=== PATIENT | male | born 1985 | race African-American/Black ===

== ENCOUNTER 2017-01-04 13:46 | Inpatient (IN) ==
[2017-01-04] MEDS ORDERED: ASPIRIN PO STA (14:28)
--- NOTE | 2017-01-04 14:43 | Diag Imaging Result Doc PS360 ---
CHEST-2 VIEWS - 01/04/2017 INDICATION: shortness of breath TECHNIQUE: COMPARISON: None FINDINGS: There are some peribronchial streaking in the lung bases particularly the right lower lobe. Heart size is borderline. Pulmonary vascularity is normal. No pneumothorax or pleural effusion. IMPRESSION: Bronchitis in the right lung base. Electronically signed by Eric Jacome 01/04/2017 2:40 PM
[2017-01-04 14:44] LABS: MANUAL DIFF NEEDED? NO
[2017-01-04 14:46] LABS: BASO% 0.5 % (0.0-0.8); EOS# 0.48 X1000 (0.0-0.7); EOS% 5.1 % (0.0-10.0); HEMATOCRIT 44.7 % (42.0-52.0); HEMOGLOBIN 15.1 g/dL (14.0-18.0); IMM GRAN# 0.02 X1000 (0.0-0.04); IMM GRAN% 0.2 % (0.0-0.5); LYMPH# 1.92 X1000 (1.2-3.4); LYMPH% 20.3 % (20.5-51.1); MCH 31.1 PG (27-31); MCHC 33.8 g/dL (33-37); MCV 92.2 FL (81-99); MONO# 1.27 X1000 (0.11-0.59); MONO% 13.4 % (1.7-9.3); MPV 10.9 FL (7.4-10.4); NEUT% 60.5 % (42.2-75.2); PLT 192 X1000 (130-400); RBC 4.85 XMIL (4.7-6.1)
[2017-01-04 15:00] LABS: ALBUMIN 3.6 g/dL (3.5-5.0); CALCIUM 8.6 mg/dL (8.8-10.2); INR 0.88 (0.86-1.15); MAGNESIUM 1.8 mg/dL (1.5-2.7); POTASSIUM 3.8 mmol/L (3.5-5.1); PROTIME 12.7 Seconds (12.1-15.5); TOTAL BILIRUBIN 0.2 mg/dL (0.20-1.00); TOTAL PROTEIN 6.5 g/dL (6.3-8.3)
[2017-01-04 15:01] LABS: PTT PL 28.6 Seconds (22.6-43.9)
[2017-01-04] MEDS ORDERED: LABETALOL IV ONE (15:01)
--- NOTE | 2017-01-04 15:15 | EKG Report ---
Test Performed on : 01/04/2017 2:37:38 PM Test Reason : CHESTPAIN Blood Pressure : / mmHG Vent. Rate : 098 BPM Atrial Rate : 098 BPM P-R Int : 178 ms QRS Dur : 090 ms QT Int : 404 ms P-R-T Axes : 067 -12 177 degrees QTc Int : 515 ms Normal sinus rhythm. Biatrial enlargement Anteroseptal infarct (cited on or before 04-JAN-2017) Marked T wave abnormality, consider inferolateral ischemia Prolonged QT ACUTE UT / STEMI Abnormal ECG When compared with ECG of 04-JAN-2017 14:36, (Unconfirmed) No significant change was found Unconfirmed Result
[2017-01-04 15:30] LABS: UR AMPHETAMINES QUAL NONE DETECTED (NONE DETECT); UR BARBITUATES QUAL NONE DETECTED (NONE DETECT); UR BENZODIAZEPIN QUAL NONE DETECTED (NONE DETECT); UR CANNABINOIDS QUAL NONE DETECTED (NONE DETECT); UR COCAINE QUAL NONE DETECTED (NONE DETECT); UR MDMA QUAL NONE DETECTED (NONE DETECT); UR METHADONE QUAL NONE DETECTED (NONE DETECT); UR METHAMPHETAMINE QUAL NONE DETECTED (NONE DETECT); UR OPIATES QUAL NONE DETECTED (NONE DETECT); UR OXYCODONE QUAL NONE DETECTED (NONE DETECT); UR PCP QUAL NONE DETECTED (NONE DETECT); UR TCA QUAL NONE DETECTED (NONE DETECT)
[2017-01-04] MEDS ORDERED: APRESOLINE IV ONE (15:47)
[2017-01-04] MEDS ORDERED: APRESOLINE ONE (15:49)
--- NOTE | 2017-01-04 16:16 | EKG Report ---
Test Performed on : 01/04/2017 3:57:12 PM Test Reason : REPEAT Blood Pressure : / mmHG Vent. Rate : 090 BPM Atrial Rate : 090 BPM P-R Int : 182 ms QRS Dur : 102 ms QT Int : 432 ms P-R-T Axes : 057 -38 145 degrees QTc Int : 528 ms Normal sinus rhythm. Left axis deviation Left ventricular hypertrophy with repolarization abnormality Prolonged QT Abnormal ECG When compared with ECG of 04-JAN-2017 14:37, (Unconfirmed) Nonspecific T wave abnormality has replaced inverted T waves in Inferior leads Unconfirmed Result
[2017-01-04 16:20] LABS: BILIRUBIN URINE NEGATIVE (NEGATIVE); BLOOD URINE 3+ (NEGATIVE); CLARITY CLEAR (CLEAR); COLOR YELLOW; GLUCOSE URINE NEGATIVE (NEGATIVE); LEUKOCYTES URINE TRACE (NEGATIVE); NITRITE URINE NEGATIVE (NEGATIVE); PH URINE 6.5; PROTEIN URINE 1+(30 mg/dL) mg/dL (NEGATIVE); SP GRAVITY URINE 1.015; UROBILINOGEN URINE NORMAL
[2017-01-04 16:22] LABS: URINE CAST NONE SEEN /LPF; URINE CRYSTAL NONE SEEN /HPF; URINE CULTURE PL NEEDED? YES; URINE EPITHELIAL CELLS <10 /HPF (<10); URINE SOURCE CLEAN CATCH; URINE WBC <10 /HPF (<10)
--- NOTE | 2017-01-04 17:21 | EKG Report ---
Test Performed on : 01/04/2017 5:16:25 PM Test Reason : CHEST PAIN Blood Pressure : / mmHG Vent. Rate : 090 BPM Atrial Rate : 090 BPM P-R Int : 182 ms QRS Dur : 098 ms QT Int : 438 ms P-R-T Axes : 057 -48 147 degrees QTc Int : 535 ms Normal sinus rhythm. Left axis deviation Minimal voltage criteria for LVH, may be normal variant Septal infarct , age undetermined ST \T\ Marked T wave abnormality, consider lateral ischemia Prolonged QT Abnormal ECG When compared with ECG of 04-JAN-2017 15:57, (Unconfirmed) No significant change was found Unconfirmed Result
[2017-01-04] MEDS ORDERED: FIORICET PO ONE (20:42)
[2017-01-04] MEDS ORDERED: NITROGLYCERIN SL PRN (22:23)
[2017-01-04] MEDS ORDERED: APRESOLINE IV PRN (22:23)
[2017-01-04] MEDS ORDERED: TYLENOL PO PRN (22:23)
[2017-01-04] MEDS ORDERED: ZOFRAN IV PRN (22:23)
[2017-01-04] MEDS ORDERED: TOPROL XL PO ONE (22:23)
[2017-01-04] MEDS ORDERED: SODIUM CHLORIDE 0.9% INJ SCH (22:23)
[2017-01-04] MEDS: PROTONIX IV SCH (23:04)
[2017-01-04] MEDS: ULTRAM PO PRN (23:14)
[2017-01-05] MEDS: TYLENOL PO PRN (04:14)
[2017-01-05 05:50] LABS: HEMATOCRIT 42.5 % (42.0-52.0); HEMOGLOBIN 14.1 g/dL (14.0-18.0); MCH 30.7 PG (27-31); MCHC 33.2 g/dL (33-37); MCV 92.6 FL (81-99); MPV 11.3 FL (7.4-10.4); RBC 4.59 XMIL (4.7-6.1)
[2017-01-05] MEDS: PRILOSEC PO SCH (06:18)
[2017-01-05] MEDS: ULTRAM PO PRN (06:22)
--- NOTE | 2017-01-05 06:25 | EKG Report ---
Test Performed on : 01/05/2017 06:06:10 AM Test Reason : cp Blood Pressure : / mmHG Vent. Rate : 077 BPM Atrial Rate : 077 BPM P-R Int : 182 ms QRS Dur : 104 ms QT Int : 504 ms P-R-T Axes : 058 -39 176 degrees QTc Int : 570 ms Normal sinus rhythm. Left axis deviation Voltage criteria for left ventricular hypertrophy Anteroseptal infarct (cited on or before 04-JAN-2017) ST \T\ Marked T wave abnormality, consider inferolateral ischemia Prolonged QT Abnormal ECG When compared with ECG of 04-JAN-2017 17:16, (Unconfirmed) Inverted T waves have replaced nonspecific T wave abnormality in Inferior leads Unconfirmed Result
[2017-01-05 06:38] LABS: AGAP 11; ALBUMIN 3.4 g/dL (3.5-5.0); ALKALINE PHOSPHATASE 76 U/L (32-122); BUN 12 mg/dL (8-22); CALCIUM 8.8 mg/dL (8.8-10.2); CHLORIDE 101 mmol/L (98-107); COSMO 272; GOT 16 U/L (10-34); GPT 21 U/L (10-44); HDL 47 mg/dL (35-55); LDL 62 mg/dL; POTASSIUM 3.4 mmol/L (3.5-5.1); SODIUM 137 mmol/L (136-145); TCO2 25 mmol/L (25-35); TOTAL PROTEIN 6.5 g/dL (6.3-8.3); TRIGLYCERIDES 52 mg/dL (39-160); VLDL 10 mg/dL
[2017-01-05] MEDS ORDERED: PRINIVIL PO SCH (09:00)
[2017-01-05] MEDS: ASPIRIN PO SCH (09:02)
[2017-01-05] MEDS ORDERED: CATAPRES PO PRN (11:27)
[2017-01-05] MEDS ORDERED: DUONEB (A & A) ONE (11:58)
[2017-01-05] MEDS: DUONEB (A & A) INH SCH ×3 (12:21→22:00)
[2017-01-05] MEDS: ROCEPHIN 1 GM in NS 50 ML IV SCH (12:45)
--- NOTE | 2017-01-05 16:38 | ECHO REPORT ---
ORDER DATE: 01/05/2017 ECHOCARDIOGRAPHIC MEASUREMENTS: 1. Interventricular septum 1.4. 2. Left ventricular posterior wall 1.6. 3. Diastolic diameter 5.3. 4. Left atrium 4.9. 5. Aorta 3.1. INTERPRETATION: 1. Normal left ventricular cavity size. Concentric left ventricular hypertrophy. Estimated ejection fraction of 45%. There is mild global hypokinesis. There is left atrial enlargement. 2. Aortic valve leaflets are trileaflet. 3. Mitral valve was normal. 4. Tricuspid valve was normal. 5. Pulmonic valve was normal. 6. There is mild mitral regurgitation. 7. Mild tricuspid regurgitation. Peak velocity across the tricuspid valve was 2.5 m/sec. 8. There is trace pulmonary regurgitation. 9. There is no aortic stenosis or regurgitation. 10. There is no pericardial effusion or obvious intracardiac mass or thrombus seen. cc: MD Gage Xiao MD
[2017-01-05] MEDS: APRESOLINE PO SCH (21:37)
[2017-01-05] MEDS: PROTONIX IV SCH (21:37)
[2017-01-05] MEDS: NORVASC PO SCH (21:37)
[2017-01-06] MEDS: DUONEB (A & A) INH SCH ×2 (03:07→10:49)
[2017-01-06] MEDS: PRILOSEC PO SCH (06:11)
[2017-01-06] MEDS: APRESOLINE PO SCH (06:11)
[2017-01-06 06:25] LABS: MANUAL DIFF NEEDED? NO
[2017-01-06 06:33] LABS: BASO% 0.5 % (0.0-0.8); EOS# 0.69 X1000 (0.0-0.7); EOS% 9.1 % (0.0-10.0); HEMATOCRIT 44.3 % (42.0-52.0); HEMOGLOBIN 14.8 g/dL (14.0-18.0); IMM GRAN# 0.02 X1000 (0.0-0.04); IMM GRAN% 0.3 % (0.0-0.5); LYMPH# 1.48 X1000 (1.2-3.4); LYMPH% 19.5 % (20.5-51.1); MCH 30.8 PG (27-31); MCHC 33.4 g/dL (33-37); MCV 92.1 FL (81-99); MONO% 17.1 % (1.7-9.3); NEUT% 53.5 % (42.2-75.2); PLT 192 X1000 (130-400); RBC 4.81 XMIL (4.7-6.1)
[2017-01-06 06:54] LABS: AGAP 10; BUN 11 mg/dL (8-22); CALCIUM 8.8 mg/dL (8.8-10.2); CHLORIDE 102 mmol/L (98-107); COSMO 274; POTASSIUM 3.9 mmol/L (3.5-5.1); SODIUM 138 mmol/L (136-145); TCO2 26 mmol/L (25-35)
[2017-01-06] MEDS: NORVASC PO SCH (08:45)
[2017-01-06] MEDS: TYLENOL PO PRN (08:45)
[2017-01-06] MEDS: ASPIRIN PO SCH (08:45)
[2017-01-06] MEDS: ROCEPHIN 1 GM in NS 50 ML IV SCH (12:53)
[2017-01-06] MEDS: ULTRAM PO PRN (12:53)
[2017-01-06] MEDS ORDERED: ZOFRAN ODT PO ONE (13:52)
[2017-01-06 14:10] VITALS: BP 142/94
== END 2017-01-06 15:30 | disposition home or self-care (01) ==
LOC: P.ED 13:46 → P.MEDSURG 13:46 → OBSVTOIN 20:41 → SUATTDRO 20:41
PROVIDERS: ATTEND Internal Medicine